=== PATIENT | male | born 1990 | race Two or more races ===

== ENCOUNTER 2021-11-21 09:33 | Emergency (ER) | payer BC, MEDICAID ==
[~2021-11-21] VITALS: Ht 185.4 cm; Wt 136.1 kg
[2021-11-21 10:15] VITALS: BP 169/100
== END 2021-11-21 12:01 | disposition home or self-care (01) ==
LOC: ER 09:33
DX: K42.9 Umbilical hernia without obstruction or gangrene (principal); K76.0 Fatty (change of) liver, not elsewhere classified; K40.90 Unilateral inguinal hernia, without obstruction or gangrene, not specified as recurrent; F17.210 Nicotine dependence, cigarettes, uncomplicated; F12.10 Cannabis abuse, uncomplicated; Z88.1 Allergy status to other antibiotic agents
CPT/HCPCS: 74176

== ENCOUNTER 2025-02-15 10:49 | Emergency (ER) | payer MEDICAID ==
[~2025-02-15] VITALS: Ht 188 cm; Wt 145.8 kg
--- NOTE | 2025-02-15 11:28 | ECG ---
[facility] Test Date: 2025-02-15 Test Time: 11:14:37 Pat Name: SHERMAN SANCHEZ Department: ER Room: Gender: M Smoke Inspector: MARY GRACE : 1990 Requested By: OMER HOYOS Order Number: [id number] Reading MD: Measurements Intervals Buckner Rate: 97 P: 4 PA: 150 QRS: 0 QRSD: 102 T: 55 QT: 361 QTc: 459 Interpretive Statements Sinus rhythm ST elevation suggests acute pericarditis Please click the below link to view image of tracing.
--- NOTE | 2025-02-15 11:35 | ED.PDOC ---
Back pain HPI HPI Comments This is a 34 year old male presenting to the ED with chief complaint of chest and back pain. Patient reports that he started to experiencing mid back pain since last night, but this morning the right side of his chest also started to become painful. Patient relays that he has worsening pain with movement and palpation. 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 Patient denies any SOB, syncope, nausea, vomiting, dizziness, numbness, weakness, tingling, fall, or injury. Chief Complaint: Shortness of Breath Time Seen by MD: 11:31 Primary Care Provider: SUE Reviewed Notes: Nurses Notes, Medications, Allergies Allergies: Coded Allergies: Amoxicillin (Verified Allergy, 03/17/12) Home Meds No Active Prescriptions or Reported Meds Information Source: Patient Mode of Arrival: Ambulatory Timing: Hours Duration: Since onset Location of Back pain: (B) Thoracic Severity: Moderate Prehospital treatment: None Quality: Sharp Onset: Bending, Twisting, Lifing Circumstance: Work Related History of: None Modifying Factors: Nothing Past Medical History PAST MEDICAL HISTORY: DM, High Lipids, HTN Surgical History: Hernia Repair Family History Family History: Reviewed,noncontributory to illness, No family hx of DM Social History Smoker: Cigarettes Alcohol: Occasionally Drugs: Marijuana Lives In: Home Constitutional: denies: chills, diaphoresis, fatigue, fever, malaise, sweats, weakness, others EENTM: denies: blurred vision, double vision, ear bleeding, ear discharge, ear drainage, ear pain, ear ringing, eye pain, eye redness, hearing loss, mouth pain, mouth swelling, nasal discharge, nose bleeding, nose congestion, nose pain, photophobia, tearing, throat pain, throat swelling, voice changes, others Respiratory: denies: cough, hemoptysis, orthopnea, SOB at rest, shortness of breath, SOB with excertion, stridor, wheezing, others Cardiovascular: reports: chest pain; denies: dizzy spells, diaphoresis, Dyspnea on exertion, edema, irregular heart beat, left arm pain, lightheadedness, palpitations, PND, syncope, others Gastrointestinal: denies: abdomen distended, abdominal pain, blood streaked bowels, constipated, diarrhea, dysphagia, difficulty swallowing, hematemesis, melena, nausea, poor appetite, poor fluid intake, rectal bleeding, rectal pain, vomiting, others Genitourinary: denies: burning, dysuria, flank pain, frequency, hematuria, incontinence, penile discharge, penile sore, pain, testicle pain, testicle swelling, urgency, others Neurological: denies: dizziness, fainting, headache, left sided numbness, left sided weakness, numbness, paresthesia, pre-existing deficit, right sided numbness, right sided weakness, seizure, speech problems, tingling, tremors, weakness, others Musculoskeletal: reports: back pain; denies: gout, joint pain, joint swelling, muscle pain, muscle stiffness, neck pain, others Integumetry: denies: bruises, change in color, change in hair/nails, dryness, laceration, lesions, lumps, rash, wounds, others Allergic/Immunocompromised: denies: Difficulty Healing, Frequent Infections, Hives, Itching, others Hematologic/Lymphatic: denies: anemia, blood clots, easy bleeding, easy bruising, swollen glands, others Endocrine: denies: excessive hunger, excessive sweating, excessive thirst, excessive urination, flushing, intolerance to cold, intolerance to heat, unexplained weight gain, unexplained weight loss, others Psychiatric: denies: anxiety, bipolar disorder, depression, hopeless, panic disorder, schizophrenia, sleepless, suicidal, others All Other Systems: Reviewed and Negative Physical Exam General Appearance: No Apparent Distress, Normal HEENT: Normal ENT Inspection, Pharynx Normal, TMs Normal Neck: Full Range of Motion, Non-Tender, Normal, Normal Inspection Respiratory: Chest Non-Tender, Lungs Clear, No Accessory Muscle Use, No Respiratory Distress, Normal Breath Sounds Cardiovascular: No Edema, No JVD, No Murmur, No Gallop, Normal Peripheral Pulses, Regular Rate/Rhythm Breast Exam: Deferred Gastrointestinal: No Organomegaly, Non Tender, No Pulsatile Mass, Normal Bowel Sounds, Soft Genitalia: Deferred Pelvic: Deferred Rectal: Deferred Extremities: No calf tenderness, Normal capillary refill, Normal inspection, Normal range of motion, Non-tender, No pedal edema Musculoskeletal : Apperance: Tenderness (Mid thoracic paraspinal tenderness, Right anterior lateral chest wall tenderness to palpation) Neurologic: Alert, 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 Was a procedure done?: No Back Pain Differential Dx Differential Diagnosis: Fracture, Musculoskeletal Pain, Pancreatitis X-Ray, Labs, Meds, VS Vital Signs Date Time Temp Pulse Resp B/P (MAP) Pulse Ox O2 Delivery O2 Flow Rate FiO2 02/15/25 11:30 98.1 96 20 156/120 (132) 98 98.1 02/15/25 11:14 97 Lab Test 02/15/25 11:40 02/15/25 11:19 Range/Units White Blood Count 9.0 4.4-10.8 10^3/uL Red Blood Count 5.88 4.5-5.90 10^6/uL Hemoglobin 17.9 H 13.5-17.5 g/dL Hematocrit 50.6 41.0-53.0 % Mean Corpuscular Volume 86.0 80.0-100.0 fL Mean Corpuscular Hemoglobin 30.4 28.0-32.0 pg Mean Corpuscular Hemoglobin Concent 35.4 32.0-36.0 g/dL Red Cell Distribution Width 12.9 11.8-14.3 % Platelet Count 258 140-450 10^3/uL Mean Platelet Volume 6.8 L 6.9-10.8 fL Neutrophils (%) (Auto) 62.7 37.0-80.0 % Lymphocytes (%) (Auto) 23.0 10.0-50.0 % Monocytes (%) (Auto) 6.4 0.0-12.0 % Eosinophils (%) (Auto) 7.1 H 0.0-7.0 % Basophils (%) (Auto) 0.8 0.0-2.0 % Neutrophils # (Auto) 5.7 1.6-8.6 10 ^3/uL Lymphocytes # (Auto) 2.1 0.4-5.4 10 ^3/uL Monocytes # (Auto) 0.6 0-1.3 10 ^3/uL Eosinophils # (Auto) 0.6 0-0.8 10 ^3/uL Basophils # (Auto) 0.1 0-0.2 10 ^3/uL Nucleated Red Blood Cells 0.3 % Sodium Level 137 136-145 mmol/L Potassium Level 4.2 3.5-5.1 mmol/L Chloride Level 104 98-107 mmol/L Carbon Dioxide Level 24 20-31 mmol/L Anion Gap 9 5-15 Blood Urea Nitrogen 10 9-23 mg/dL Creatinine 0.68 L 0.700-1.30 mg/dL Glomerular Filtration Rate Calc 125 >90 mL/min BUN/Creatinine Ratio 14.7 10.0-20.0 Serum Glucose 159 H 74-106 mg/dL Calcium Level 9.3 8.7-10.4 mg/dL Total Bilirubin 0.9 0.2-1.0 mg/dL Aspartate Amino Transferase (AST) 62 H 13-40 U/L Alanine Aminotransferase (ALT) 83 H 7-40 U/L Alkaline Phosphatase 79 46-116 U/L Troponin I High Sensitivity 3 L </=54 ng/L Total Protein 7.7 5.7-8.2 g/dL Albumin 4.5 3.2-4.8 g/dL Lipase 34 12-53 U/L POC Glucose 196 H 70-106 mg/dl Time of 1ST Reevaluation: 12:31 Reevaluation 1ST: Unchanged Patient Education/Counseling: Diagnosis, Treatment, Prognosis, Need For Follow Up Family Education/Counseling: No Family Present Comments pt has muscular chest pain, cardiac workup is unremarkable. he is stable for discharge. he has no signs of aortic disease and no PE risk factors, no PTX, no rib fractures, no pneumonia Additional Information Reviewed patient's previous visit(s): 11/21/21 for abdominal pain The following tests were ordered, and results were reviewed by me: CBC, CMP, Lipase, Troponin, Chest XR, EKG Additional information was gathered from interviewing the following independent historian: None I reviewed and agreed with the following test results read by other provider: Chest XR I discussed treatments and results with medical personnel and: Patient Comprehensive systems review obtained and negative except for what is stated in the HPI. SEPSIS Sepsis Screen Physician Orders Chest Portable (02/15/25 11:28) Troponin-I Hs (02/15/25 12:30) Troponin-I Hs (02/15/25 14:30) Vital Signs Date Time Temp Pulse Resp B/P (MAP) Pulse Ox O2 Delivery O2 Flow Rate FiO2 02/15/25 11:30 98.1 96 20 156/120 (132) 98 98.1 02/15/25 11:14 97 Laboratory Tests Test 02/15/25 11:40 White Blood Count 9.0 10^3/uL (4.4-10.8) Departure 1 Departure Time of Disposition: 12:40 Impression: Primary Impression: Chest wall pain Disposition: HOME / SELF CARE / HOMELESS Condition: Good e-Prescriptions Cyclobenzaprine Hcl (Cyclobenzaprine Hcl) 10 Mg Tab 10 MG PO Q8HP PRN for 2 Days, #6 TAB Prov: OMER HOYOS MD 02/15/25 Ibuprofen Micronized (MOTRIN TABLET) 600 Mg Tb 600 MG PO TID PRN, #40 TAB *Black box warning-NSAIDS can increase risk of NH & hypertension, GI irritation, ulceration, bleed, perferation. Do not use post cardiac surgery. Use short duration/lowest effective dose. Prov: OMER HOYOS MD 02/15/25 Discharged With: Self Critical Care Note Critical Care Time?: No Stability Stability form required: No Heart Score Heart Score: Heart Score Response (Comments) Value History N/A 0 EKG N/A 0 Age N/A 0 Risk Factors N/A 0 Troponin N/A 0 Total 0 I personally scribed for OMER HOYOS MD ([email or web address]) on 02/15/25 at 11:35. Electronically submitted by Maurice Dawkins ([email or web address]). OMER HOYOS MD Feb 15, 2025 11:35
[2025-02-15 12:06] LABS: Hematocrit 50.6 % (41.0-53.0); Hemoglobin 17.9 g/dL (13.5-17.5); Mean Corpuscular Hemoglobin 30.4 pg (28.0-32.0); Mean Corpuscular Volume 86.0 fL (80.0-100.0); Nucleated Red Blood Cells % 0.3 %
[2025-02-15 12:19] LABS: Alanine Aminotransferase 83 U/L (7-40); Albumin 4.5 g/dL (3.2-4.8); Alkaline Phosphatase 79 U/L (46-116); Anion Gap 9 (5-15); BUN/Creatinine Ratio 14.7 (10.0-20.0); Blood Urea Nitrogen 10 mg/dL (9-23); Calcium 9.3 mg/dL (8.7-10.4); Carbon Dioxide 24 mmol/L (20-31); Chloride 104 mmol/L (98-107); Glucose 159 mg/dL (74-106); Lipase 34 U/L (12-53); Potassium 4.2 mmol/L (3.5-5.1); Sodium 137 mmol/L (136-145); Total Protein 7.7 g/dL (5.7-8.2)
--- NOTE | 2025-02-15 12:19 | DVH ---
EXAM: XY CHEST PORTABLE HISTORY: pain COMPARISON: None TECHNIQUE: Portable AP view of the chest was performed. FINDINGS: No pneumothorax, consolidative infiltrates, or pulmonary edema. The heart is not enlarged. IMPRESSION: No acute intrathoracic process.
[2025-02-15 12:20] LABS: Bilirubin, Total 0.9 mg/dL (0.2-1.0)
[2025-02-15] MEDS ORDERED: CYCL-839 PO (12:41)
[2025-02-15] MEDS ORDERED: IBU600T PO (12:41)
[2025-02-15 12:45] VITALS: BP 139/90; PULSE 96; RESP 16; TEMP 98.4; O2SAT 96
== END 2025-02-15 12:54 | disposition home or self-care (01) ==
LOC: ER 10:49
DX: R07.89 Other chest pain (principal); F17.210 Nicotine dependence, cigarettes, uncomplicated; F10.90 Alcohol use, unspecified, uncomplicated; F12.90 Cannabis use, unspecified, uncomplicated; E11.9 Type 2 diabetes mellitus without complications; I10 Essential (primary) hypertension; E78.5 Hyperlipidemia, unspecified; Z98.890 Other specified postprocedural states; Z88.0 Allergy status to penicillin; Y90.9 Presence of alcohol in blood, level not specified
CPT/HCPCS: 36415; 71045; 80053; 82947; 82962; 83690; 84484; 85025; 93005